=== PATIENT | male | born 1965 | race Caucasian/White ===

== ENCOUNTER 2018-02-10 13:02 | Observation (INO) ==
--- NOTE | 2018-02-10 14:20 | XR ---
EXAM DATE: 02/10/2018 1:58 PM EDT AGE/SEX: 53 years / Male INDICATIONS: . Chest pain. CLINICAL DATA: This is the patient's initial encounter. Patient reports that signs and symptoms have been present for 1 day and indicates a pain score of 7/10. MEDICAL/SURGICAL HISTORY: Diverticulitis. Hypertension. Diabetes. None. COMPARISON: No prior exams available for comparison. FINDINGS: PA and lateral views of the chest demonstrate elevation right hemidiaphragm. Right basilar subsegment al atelectasis. Left lung clear. Heart normal in size The cardiomediastinal contours are unremarkable . Osseous structures are intact. CONCLUSION: Right basilar subsegmental atelectasis and elevation right hemidiaphragm. Electronically signed by: Aydin Damon MD 02/10/2018 2:19 PM EDT
[2018-02-10 14:27] LABS: Baso # (Auto) 0.1 th/mm3 (0.0-0.2); Baso % (Auto) 0.9 % (0.0-2.0); Eos # (Auto) 0.2 th/mm3 (0.0-0.4); Eos % (Auto) 2.7 % (0.0-4.0); Hematocrit 45.3 % (39.0-51.0); Hemoglobin 15.3 gm/dL (13.0-17.0); Lymph # (Auto) 1.7 th/mm3 (1.0-4.8); Lymph % (Auto) 23.9 % (9.0-44.0); Mean Corpuscular HGB Conc 33.7 % (32.0-36.0); Mean Corpuscular Hemoglobin 29.6 pg (27.0-34.0); Mean Corpuscular Volume 87.8 fL (80.0-100.0); Mean Platelet Volume 9.4 fL (7.0-11.0); Mono # (Auto) 0.6 th/mm3 (0.0-0.9); Mono % (Auto) 7.9 % (0.0-8.0); Neut # (Auto) 4.6 th/mm3 (1.8-7.7); Neut % (Auto) 64.6 % (16.0-70.0); Platelet Count 220 th/mm3 (150-450); Red Blood Count 5.16 mil/mm3 (4.50-5.90); Red Cell Distribution Width 14.9 % (11.6-17.2); White Blood Count 7.1 th/mm3 (4.0-11.0)
[2018-02-10 14:41] LABS: Anion Gap 11 meq/L (5-15); Blood Urea Nitrogen 21 mg/dL (7-18); Calcium 9.2 mg/dL (8.5-10.1); Carbon Dioxide 24.4 meq/L (21.0-32.0); Chloride 105 meq/L (98-107); Glomerular Filtration Rate 51 mL/min (>89); Glucose,Random 160 mg/dL (74-106); Potassium 4.2 meq/L (3.5-5.1); Sodium 140 meq/L (136-145)
[2018-02-10 14:46] LABS: Creatine Kinase 84 U/L (39-308)
[2018-02-10 15:23] VITALS: RESP 18
--- NOTE | 2018-02-10 16:15 | ED ---
HPI General Chief Complaint: Chest Pain Stated Complaint: Chest pain Time Seen by Provider: 02/10/18 14:50 Source: patient and family Mode of arrival: ambulatory Limitations: no limitations History of Present Illness HPI narrative: 53-year-old male the presents to the ED for evaluation of left- sided chest pain that woke him up from sleep. Per patient is happened today. Per patient last for about 5 minutes and it went away. Per patient still feels sore on his chest. Feels like a pressure. Denies any urinary or bowel movement issues. Abdominal pain and nausea since Wednesday. Per patient he believes is secondary to diverticulitis. He has had flares of this in the past and feels similar. Per patient he has not seen anybody for the abdominal pain and he thought it will go away. Per patient the pain now is improved. Per patient he does have a history of diabetes, high blood pressure high cholesterol and takes medications for all 3. He has had a stress test about 3 years ago. Denies any fevers chills or sweats. No cough or runny nose. No trauma. No recent travel. Takes no blood thinners. Has been taking some Aleve for the pain with minimal improvement. Per patient his pain currently in his chest is 3 out of 10. No counter weigher. No other medical issues. Complete Quality Measures for STEMI Alert Patients Related Data Home Medications Medication Instructions Recorded Confirmed empagliflozin [Jardiance] 25 mg PO DAILY 02/10/18 02/10/18 insulin degludec [Tresiba 20 unit SUB-Q DAILY 02/10/18 02/10/18 FlexTouch U-200] liraglutide [Victoza 3-Sarkis] 2.6 mg SUB-Q DAILY 02/10/18 02/10/18 lisinopril-hydrochlorothiazide 1 tab PO DAILY 02/10/18 02/10/18 metformin 1,000 mg PO BID 02/10/18 02/10/18 metoprolol succinate 25 mg PO DAILY 02/10/18 02/10/18 pravastatin 20 mg PO DAILY 02/10/18 02/10/18 Allergies Allergy/AdvReac Type Severity Reaction Status Date / Time No Known Allergies Allergy Unverified 02/10/18 13:14 Review of Systems ROS: all other systems reviewed are negative [facility] Medical History Medical History Arthritis (Acute) Diabetes (Acute) Hypercholesteremia (Acute) Hypertension (Acute) Social History Social History Substance History: No History of Abuse Second Hand Smoke Exposure: Yes Smoking Status: Never smoker How Often Do You Have a Drink Containing Alcohol: Never Recent Travel in [facility] within the Last 8 Weeks: No Recent Out of Country Travel within the Last 8 Weeks: No Immunization History Tetanus Immunization: Unsure Hx Influenza Vaccine This Season: No Exam Narrative Exam Narrative: GENERAL: Well appearing SKIN: Focused skin assessment warm/dry. HEAD: Atraumatic. Normocephalic. EYES: Pupils equal and round. No scleral icterus. No injection or drainage. ENT: No nasal bleeding or discharge. Mucous membranes pink and moist. tongue is midline. No uvula deviation. NECK: Trachea midline. No JVD. CARDIOVASCULAR: Regular rate and rhythm. No murmur appreciated. RESPIRATORY: No accessory muscle use. Clear to auscultation. Breath sounds equal bilaterally. GASTROINTESTINAL: Abdomen soft, non-tender, nondistended. Hepatic and splenic margins not palpable. MUSCULOSKELETAL: No obvious deformities. No clubbing. No cyanosis. No edema. Full range of motion of the upper and lower extremities bilaterally. 2+ pulses bilaterally. NEUROLOGICAL: Awake and alert. No obvious cranial nerve deficits. Motor grossly within normal limits. Normal speech. PSYCHIATRIC: Appropriate mood and affect; insight and judgment normal. Course Initial Documented Vital Signs Temperature 98.0 F 02/10/18 13:10 Pulse Rate 86 02/10/18 13:10 Respiratory Rate 15 02/10/18 13:10 Blood Pressure 129/74 02/10/18 13:10 Pulse Oximetry 98 02/10/18 13:10 Last Documented Vital Signs Temperature 98.0 F 02/10/18 13:10 Pulse Rate 96 H 02/10/18 18:00 Respiratory Rate 18 02/10/18 18:00 Blood Pressure 130/74 02/10/18 18:00 Pulse Oximetry 97 02/10/18 17:31 Medical Decision Making TIGRE Attestation TIGRE supervised visit: Yes Attestation: I, Dr. langley, have reviewed the advance practice practitioner's documentation and am in agreement, met with the patient face to face, made the diagnosis, and the medical decision making was done by me. *My assessment and Findings: 53 y/o male presents with chest pain, initial ER testing without emergent process. Agrees to chest pain center observation MDM Narrative Medical decision making narrative: 53-year-old male the presents to the ED for evaluation of chest pain. Patient was properly examined and was found to have signs and symptoms concerning for ACS. EKG and troponin had been done in triage and were essentially negative. Patient does complain some abdominal pain. There is concern for ACS with this could also be abdominal in nature. We will do CT and blood work for belly. Patient agrees to proceed. Patient was given aspirin. Labs and imaging showed no sign of acute disease. At this time accommodations for admission for further evaluation. Patient agrees. Case discussed with my attending Dr. Langley who evaluated the patient and agrees with admission. Patient was admitted to the chest pain center by me. Differential Diagnosis Differential Diagnosis: ACS versus chest pain versus a typical chest pain versus diverticulitis versus acute abdomen Medical Records Medical records reviewed: Yes I reviewed the patient's medical records. Lab Data Lab results reviewed: Yes I reviewed the patient's lab results. Lab results narrative: lipase and hepatic panel WNL Result diagrams: 02/10/18 14:00 02/10/18 14:00 Lab Results 02/10/18 02/10/18 02/10/18 Range/Units 14:00 14:00 14:00 WBC 7.1 (4.0-11.0) th/mm3 RBC 5.16 (4.50-5.90) mil/mm3 Hgb 15.3 (13.0-17.0) gm/dL Hct 45.3 (39.0-51.0) % MCV 87.8 (80.0-100.0) fL MCH 29.6 (27.0-34.0) pg MCHC 33.7 (32.0-36.0) % RDW 14.9 (11.6-17.2) % Plt Count 220 (150-450) th/mm3 MPV 9.4 (7.0-11.0) fL Neut % (Auto) 64.6 (16.0-70.0) % Lymph % (Auto) 23.9 (9.0-44.0) % [place] % (Auto) 7.9 (0.0-8.0) % Eos % (Auto) 2.7 (0.0-4.0) % Baso % (Auto) 0.9 (0.0-2.0) % Neut # (Auto) 4.6 (1.8-7.7) th/mm3 Lymph # (Auto) 1.7 (1.0-4.8) th/mm3 [place] # (Auto) 0.6 (0.0-0.9) th/mm3 Eos # (Auto) 0.2 (0.0-0.4) th/mm3 Baso # (Auto) 0.1 (0.0-0.2) th/mm3 WBC Differential . Differential Comment Auto diff final Sodium 140 (136-145) meq/L Potassium 4.2 (3.5-5.1) meq/L Chloride 105 (98-107) meq/L Carbon Dioxide 24.4 (21.0-32.0) meq/L Anion Gap 11 (5-15) meq/L BUN 21 H (7-18) mg/dL Creatinine 1.45 H (0.60-1.30) mg/dL Estimated GFR 51 L (>89) mL/min Random Glucose 160 H (74-106) mg/dL Calcium 9.2 (8.5-10.1) mg/dL Total Bilirubin (0.2-1.0) mg/dL Direct Bilirubin (0.0-0.2) mg/dL Indirect Bilirubin (0.0-0.8) mg/dL AST (15-37) U/L ALT (12-78) U/L Alkaline Phosphatase (45-117) U/L Total Creatine Kinase 84 (39-308) U/L Troponin I Less than 0.02 L (0.02-0.05) ng/mL Total Protein (6.4-8.2) g/dL Albumin (3.4-5.0) g/dL Lipase 305 (73-393) U/L 02/10/18 Range/Units 14:00 WBC (4.0-11.0) th/mm3 RBC (4.50-5.90) mil/mm3 Hgb (13.0-17.0) gm/dL Hct (39.0-51.0) % MCV (80.0-100.0) fL MCH (27.0-34.0) pg MCHC (32.0-36.0) % RDW (11.6-17.2) % Plt Count (150-450) th/mm3 MPV (7.0-11.0) fL Neut % (Auto) (16.0-70.0) % Lymph % (Auto) (9.0-44.0) % [place] % (Auto) (0.0-8.0) % Eos % (Auto) (0.0-4.0) % Baso % (Auto) (0.0-2.0) % Neut # (Auto) (1.8-7.7) th/mm3 Lymph # (Auto) (1.0-4.8) th/mm3 [place] # (Auto) (0.0-0.9) th/mm3 Eos # (Auto) (0.0-0.4) th/mm3 Baso # (Auto) (0.0-0.2) th/mm3 WBC Differential Differential Comment Sodium (136-145) meq/L Potassium (3.5-5.1) meq/L Chloride (98-107) meq/L Carbon Dioxide (21.0-32.0) meq/L Anion Gap (5-15) meq/L BUN (7-18) mg/dL Creatinine (0.60-1.30) mg/dL Estimated GFR (>89) mL/min Random Glucose (74-106) mg/dL Calcium (8.5-10.1) mg/dL Total Bilirubin 0.7 (0.2-1.0) mg/dL Direct Bilirubin 0.2 (0.0-0.2) mg/dL Indirect Bilirubin 0.5 (0.0-0.8) mg/dL AST 29 (15-37) U/L ALT 56 (12-78) U/L Alkaline Phosphatase 69 (45-117) U/L Total Creatine Kinase (39-308) U/L Troponin I (0.02-0.05) ng/mL Total Protein 8.1 (6.4-8.2) g/dL Albumin 4.1 (3.4-5.0) g/dL Lipase (73-393) U/L Imaging Data Attestation: I personally reviewed and interpreted this imaging study as follows : Radiologist's impression: Chest X-Ray 02/10/18 13:16 CONCLUSION: Right basilar subsegmental atelectasis and elevation right hemidiaphragm. Abdomen/Pelvis CT 02/10/18 15:04 CONCLUSION: 1. Hypodense liver characteristic of steatosis. 2. No evidence of acute process. 3. Otherwise unremarkable exam. ECG Data EKG Prior to Arrival: No Prior ECG tracings: not available for review Interpretation: EKG shows sinus rhythm with no sign of acute ischemia or arrhythmia read by me and attending. Discharge Plan Discharge Disposition Patient Disposition: 30 Still Patient Discharge Details Diagnosis: Chest pain Physicians Team ED Provider: Alexandria Langley ED Midlevel Provider: Yeison Wong Primary Care Provider: Primary Care Yesi,Vidya Attending Provider: Palmer Frias Status ED Status: Admitted Observation Patient
[2018-02-10 16:47] LABS: Albumin 4.1 g/dL (3.4-5.0)
[2018-02-10 16:48] LABS: Total Protein 8.1 g/dL (6.4-8.2)
--- NOTE | 2018-02-10 17:59 | CT ---
EXAM DATE: 02/10/2018 5:52 PM EDT AGE/SEX: 53 years / Male INDICATIONS: Left side abdomen pain with nausea. CLINICAL DATA: This is the patient's initial encounter. Patient reports that signs and symptoms have been present for 1 day and indicates a pain score of 5/10. MEDICAL/SURGICAL HISTORY: None. None. ORAL CONTRAST: No oral contrast ingested. RADIATION DOSE: 16.50 CTDI (mGy) COMPARISON: No prior exams available for comparison. TECHNIQUE: Multiple contiguous axial images were obtained through the abdomen and pelvis following b olus infusion of 90 ml Omnipaque 350 (iohexol) nonionic water-soluble contrast as a single exam dos e. No oral contrast ingested. Using automated exposure control and adjustment of the mA and/or kV ac cording to patient size, radiation dose was kept as low as reasonably achievable to obtain optimal di agnostic quality images. DICOM format image data is available electronically for review and comparis on. FINDINGS: Lower Lungs: The visualized lower lungs are clear. Liver: The liver is diffusely hypodense. There are no focal space-occupying lesions or evidence of bi liary duct dilatation. There are no calcified gallstones. Spleen: Homogeneous density without enlargement. Pancreas: Unremarkable without mass or calcification. Kidneys: Normal in size and shape. No evidence of mass or hydronephrosis. 2 mm calculus is identifie d in the midpole of the left kidney. Adrenal Glands: Unremarkable. Aorta: The aorta and proximal iliac vessels are grossly unremarkable without aneurysmal dilation. Bowel/Mesentery: The bowel loops are grossly unremarkable. The cecum and sigmoid colon have a normal configuration. Retained stool is present throughout the colon. Abdominal Wall: Intact. Retroperitoneum: No evidence of adenopathy in the retrocrural, para-aortic, or deep pelvic regions. Bladder: Contours are smooth. Reproductive Organs: No abnormal masses or calcifications seen. Inguinal: The inguinal region is unremarkable without evidence of adenopathy. Bony Structures: Unremarkable. CONCLUSION: 1. Hypodense liver characteristic of steatosis. 2. No evidence of acute process. 3. Otherwise unremarkable exam. Electronically signed by: Oliver Peoples MD 02/10/2018 5:58 PM EDT
[2018-02-10] MEDS ORDERED: Acetaminophen 500 MG Tablet PO PRN (18:16)
[2018-02-10 19:35] LABS: Creatine Kinase 83 U/L (39-308)
[2018-02-10 23:11] LABS: Creatine Kinase 68 U/L (39-308)
[2018-02-11] MEDS ORDERED: Dextrose 50% in Water 50 ML Vial IV.PUSH PRN (07:22)
--- NOTE | 2018-02-11 08:47 | ECG ---
Date Performed: 02/10/2018 Time Performed: 22:08:15 PTAGE: 53 years EKG: Sinus rhythm LOW QRS VOLTAGE IN PRECORDIAL LEADS POSSIBLE RIGHT VENTRICULAR CONDUCTION DELAY ANTERIOR MYOCARDIAL INFARCTION ABNORMAL ECG PREVIOUS TRACING : 02/10/2018 18.30 Since previous tracing, no significant change noted DOCTOR: Palmer Frias Interpretating Date/Time 02/11/2018 08:47:15
--- NOTE | 2018-02-11 08:48 | ECG ---
Date Performed: 02/10/2018 Time Performed: 18:30:01 PTAGE: 53 years EKG: Sinus rhythm LOW QRS VOLTAGE IN PRECORDIAL LEADS POSSIBLE RIGHT VENTRICULAR CONDUCTION DELAY POSSIBLE ANTERIOR MY OCARDIAL INFARCTION ABNORMAL ECG PREVIOUS TRACING : 02/10/2018 13.27 Since previous tracing, no significant change noted DOCTOR: Palmer Frias Interpretating Date/Time 02/11/2018 08:48:08
--- NOTE | 2018-02-11 08:49 | ECG ---
Date Performed: 02/10/2018 Time Performed: 13:27:59 PTAGE: 53 years EKG: Sinus rhythm LOW QRS VOLTAGE IN PRECORDIAL LEADS INCOMPLETE RIGHT BUNDLE BRANCH BLOCK POSSIBLE ANTERIOR MYOCARDIA L INFARCTION ABNORMAL ECG WARNING: DATA QUALITY MAY AFFECT INTERPRETATION NO PREVIOUS TRACING DOCTOR: Palmer Frias Interpretating Date/Time 02/11/2018 08:48:39
[2018-02-11] MEDS: Insulin NovoLIN Regular Correctional Sugar Inj SQ SCH ×2 (09:11→15:19)
--- NOTE | 2018-02-11 09:31 | P.HPCA ---
History of Present Illness Primary Care Physician: No Primary Care Physician Chief Complaint: Chest pain History of Present Illness: This is a 53-year-old male with history of hypertension, hyperlipidemia, diabetes, and generalized arthritic pains that presents to ED with complaint of waking up 6:00 yesterday morning with a left-sided chest discomfort that he describes as a sharp pain. Last about 5 minutes and then went back to sleep. He woke up couple hours later within a soreness in his left chest lasted for greater than 12 hours. It resolved somewhere in the evening last night. Found nothing to worsen or improve it. Really cannot recall being short of breath, nauseous, diaphoretic. Plan of abdominal pain in the ED but is not complaining of abdominal pain to me. Denies recent illness. Denies fevers or chills. Denies history of CAD and cannot recall any recent stress testing. States his family history of CAD. Lifetime non-smoker. - Diagnosis (1) Chest pain (2) Hypertension (3) Diabetes (4) Hyperlipidemia Review of Systems General: Patient denies fevers, chills, and recent travel. HEENT: Patient denies headache, sore throat, difficulty swallowing. Cardiovascular: Has the chest discomfort as mentioned above. Denies sensation of heart beating rapidly or irregularly. No syncope. Denies diaphoresis Respiratory: Denies shortness of breath or inspirational chest discomfort. Denies coughing wheezing or hemoptysis. GI: Patient denies nausea, vomiting, diarrhea, abdominal pain, bloody stools. Musculoskeletal: Complains of generalized arthritic pains. Patient denies joint edema. Denies calf pain or edema. Neurovascular: Patient denies numbness, tingling, weakness in extremities. Denies headache. Endocrine: Denies polyuria and polydipsia. Hematologic: Denies easy bruising. Skin: Denies rash or itching. PMFSH - History History Provided By: Patient - Medical History Medical History: Medical History (Last Reviewed 02/10/18 @ 16:13 by DEUCE Powers) Arthritis Diabetes Hypercholesteremia Hypertension - Tobacco History Second Hand Smoke Exposure: Yes Tobacco Use In Past 30 Days: No Smoking Status: Never smoker - Alcohol History How Often Do You Have a Drink Containing Alcohol: Never - Substance Use History Substance History: No History of Abuse - Travel History Recent Travel in the [facility] Within the Last 8 Weeks: No Recent Travel Out of the Country Within the Last 8 Weeks: No - Immunization History Tetanus Immunization: Unsure Hx Influenza Vaccine This Season: No Medications and Allergies Active Medications: Active Medications Acetaminophen (Tylenol) 500 mg PO Q4H PRN PRN Reason: HEADACHE Hydrocodone Bitart/Acetaminophen ([place] 7.5/325) 1 tab PO Q4H PRN PRN Reason: PAIN SCALE 1 TO 7 Dextrose (D50w Vial) 50 ml IV.PUSH UNSCH PRN PRN Reason: PER HYPOGLYCEMIA PROTOCOL Glucagon (Glucagon Inj) 1 mg OTHER UNSCH PRN PRN Reason: for Hypoglycemia Protocol Insulin Human Regular (Novolin R Correctional Sugar Inj) 0 units SQ ACHS [facility]; Protocol Last Admin: 02/11/18 09:11 Dose: Not Given Metoprolol Succinate (Toprol Xl) 25 mg PO DAILY [facility] Non-Formulary Medication (Lisinopril-Hydrochlorothiazide [Lisinopril- Hydrochlorothiazide]) 1 tab PO DAILY [facility] Ondansetron HCl (Zofran Inj) 4 mg IV.PUSH Q6H PRN PRN Reason: NAUSEA Pravastatin Sodium (Pravachol) 20 mg PO DAILY [facility] Sodium Chloride (Ns Flush) 2 ml IV.FLUSH BID [facility] Last Admin: 02/11/18 09:10 Dose: 2 ml Sodium Chloride (Ns Flush) 2 ml IV.FLUSH PRN PRN PRN Reason: FLUSH AFTER USING IV ACCESS Allergies Allergy/AdvReac Type Severity Reaction Status Date / Time No Known Allergies Allergy Unverified 02/10/18 13:14 Home Medications Medication Instructions Recorded Confirmed Type empagliflozin [Jardiance] 25 mg PO DAILY 02/10/18 02/10/18 History insulin degludec [Tresiba 20 unit SUB-Q DAILY 02/10/18 02/10/18 History FlexTouch U-200] liraglutide [Victoza 3-Sarkis] 2.6 mg SUB-Q DAILY 02/10/18 02/10/18 History lisinopril-hydrochlorothiazide 1 tab PO DAILY 02/10/18 02/10/18 History metformin 1,000 mg PO BID 02/10/18 02/10/18 History metoprolol succinate 25 mg PO DAILY 02/10/18 02/10/18 History pravastatin 20 mg PO DAILY 02/10/18 02/10/18 History Exam Vital signs: Vital Signs 02/10/18 13:10 02/10/18 15:16 02/10/18 16:58 Temperature 98.0 F Pulse Rate 86 85 96 H Respiratory Rate 15 18 18 Blood Pressure 129/74 136/78 133/77 Pulse Oximetry 98 96 97 02/10/18 17:31 02/10/18 18:00 02/10/18 20:00 Temperature 98 F Pulse Rate 96 H 95 H Respiratory Rate 18 18 Blood Pressure 130/74 129/80 Pulse Oximetry 97 97 02/10/18 23:24 02/11/18 01:32 02/11/18 04:00 Temperature 97.8 F 98 F Pulse Rate 96 H 84 90 Respiratory Rate 18 18 Blood Pressure 118/72 108/61 Pulse Oximetry 94 L 96 02/11/18 07:49 Temperature 98.9 F Pulse Rate 84 Respiratory Rate 18 Blood Pressure 119/72 Pulse Oximetry 96 Intake & Output 02/10/18 02/11/18 02/11/18 18:59 06:59 18:59 Weight 113.398 kg Narrative: GENERAL: This is a well-nourished, well-developed patient, in no apparent distress. Patient speaks in clear complete sentences. Patient is pleasant. HEENT: Head is atraumatic and normocephalic. Neck is supple without lymphadenopathy and trachea is midline. No JVD or carotid bruits. CARDIOVASCULAR: Regular rate and rhythm without murmurs, gallops, or rubs. RESPIRATORY: Clear to auscultation. Breath sounds equal bilaterally. No wheezes , rales, or rhonchi. Chest wall is nontender. No use of accessory muscles. GASTROINTESTINAL: Abdomen is nontender, nondistended. Abdomen soft. No obvious pulsatile mass or bruit. No CVA tenderness. Strong femoral pulses bilaterally. Normal bowel sounds in all quadrants. MUSCULOSKELETAL: Patient is moving upper and lower extremities freely. No calf tenderness or edema, no Homans sign. Strong pulses in upper and lower extremities. NEUROLOGICAL: Patient is alert and oriented. Cranial nerves 2-12 are grossly intact. No focal deficits and speech is clear. SKIN: No rash and turgor is normal. Results 02/10/18 14:00 02/10/18 14:00 Cardiac Enzymes 02/10/18 02/10/18 02/10/18 Range/Units 14:00 14:00 18:20 AST 29 (15-37) U/L Troponin I Less than 0.02 L Less than 0.02 L (0.02-0.05) ng/mL 02/10/18 Range/Units 22:12 AST (15-37) U/L Troponin I Less than 0.02 L (0.02-0.05) ng/mL CBC 02/10/18 Range/Units 14:00 WBC 7.1 (4.0-11.0) th/mm3 RBC 5.16 (4.50-5.90) mil/mm3 Hgb 15.3 (13.0-17.0) gm/dL Hct 45.3 (39.0-51.0) % Plt Count 220 (150-450) th/mm3 Neut # (Auto) 4.6 (1.8-7.7) th/mm3 Lymph # (Auto) 1.7 (1.0-4.8) th/mm3 [place] # (Auto) 0.6 (0.0-0.9) th/mm3 Eos # (Auto) 0.2 (0.0-0.4) th/mm3 Baso # (Auto) 0.1 (0.0-0.2) th/mm3 Comprehensive Metabolic Panel 02/10/18 02/10/18 Range/Units 14:00 14:00 Sodium 140 (136-145) meq/L Potassium 4.2 (3.5-5.1) meq/L Chloride 105 (98-107) meq/L Carbon Dioxide 24.4 (21.0-32.0) meq/L BUN 21 H (7-18) mg/dL Creatinine 1.45 H (0.60-1.30) mg/dL Calcium 9.2 (8.5-10.1) mg/dL Direct Bilirubin 0.2 (0.0-0.2) mg/dL Indirect Bilirubin 0.5 (0.0-0.8) mg/dL AST 29 (15-37) U/L ALT 56 (12-78) U/L Alkaline Phosphatase 69 (45-117) U/L Total Protein 8.1 (6.4-8.2) g/dL Albumin 4.1 (3.4-5.0) g/dL EKG interpretations - EKG EKG shows: sinus rhythm (EKGs are sinus rhythm without significant ST segment depressions or elevations.) Caprini VTE Risk Assessment Caprini VTE Risk Assessment: No/Low Risk (score <= 1) Caprini Risk Assessment Model: Point Value = 1 Point Value = 2 Point Value = 3 Point Value = 5 Age 41-60 Minor surgery BMI > 25 kg/m2 Swollen legs Varicose veins or History of unexplained or recurrent spontaneous Oral contraceptives or hormone replacement Sepsis (< 1 month) Serious lung disease, including pneumonia (< 1 month) Abnormal pulmonary function Acute myocardial infarction Congestive heart failure (< 1 month) History of inflammatory bowel disease Medical patient at bed rest Age 61-74 Arthroscopic surgery Major open surgery (> 45 min) Laparoscopic surgery (> 45 min) Malignancy Confined to bed (> 72 hours) Immobilizing plaster cast Central venous access Age >= 75 History of VTE Family history of VTE Factor V Leiden Prothrombin [id number] Lupus anticoagulant Anticardiolipin antibodies Elevated serum homocysteine Heparin-induced thrombocytopenia Other congenital or acquired thrombophilia Stroke (< 1 month) Elective arthroplasty Hip, pelvis, or leg fracture Acute spinal cord injury (< 1 month) Prophylaxis Regimen: Total Risk Factor Score Risk Level Prophylaxis Regimen 0-1 Low Early ambulation 2 Moderate Order ONE of the following: *Sequential Compression Device (SCD) *Heparin 5000 units SQ BID 3-4 Higher Order ONE of the following medications: *Heparin 5000 units SQ TID *Enoxaparin/Lovenox 40 mg SQ daily (WT < 150 kg, CrCl > 30 mL/min) *Enoxaparin/Lovenox 30 mg SQ daily (WT < 150 kg, CrCl > 10-29 mL/min) *Enoxaparin/Lovenox 30 mg SQ BID (WT < 150 kg, CrCl > 30 mL/min) AND/OR *Sequential Compression Device (SCD) 5 or more Highest Order ONE of the following medications: *Heparin 5000 units SQ TID (Preferred with Epidurals) *Enoxaparin/Lovenox 40 mg SQ daily (WT < 150 kg, CrCl > 30 mL/min) *Enoxaparin/Lovenox 30 mg SQ daily (WT < 150 kg, CrCl > 10-29 mL/min) *Enoxaparin/Lovenox 30 mg SQ BID (WT < 150 kg, CrCl > 30 mL/min) AND *Sequential Compression Device (SCD) Assessment and Plan - Assessment (1) Chest pain Code(s): R07.9 - Chest pain, unspecified Status: Acute (2) Hypertension Code(s): I10 - Essential (primary) hypertension Status: Acute (3) Diabetes Code(s): E11.9 - Type 2 diabetes mellitus without complications Status: Acute (4) Hyperlipidemia Code(s): E78.5 - Hyperlipidemia, unspecified Status: Acute - Plan * Chest pain: Patient has had serial cardiac enzymes and EKGs for ruling out purposes. He has been seen by Dr. Palmer Frias of cardiology in chest pain center. He will undergo a Lexiscan as he states he would not be able do the treadmill with history of his arthritic pains. Patient will be discharged home if the stress test is nonischemic with instructions to follow-up with PCP. Return to ED for interval issues. * Hypertension: Continue medication. * Hyperlipidemia: Continue medication. * Diabetes: Patient will be on sliding scale insulin coverage. He will need to hold his metformin for 48 hours as he had a CT with contrast while being evaluated in the ED. Patient is stable at this time. He is agreeable to this plan. H&P: Quality - VTE Deep Vein Thrombosis/Pulmonary Embolism Present on Admission: No
[2018-02-11] MEDS ORDERED: Lisinopril 20 MG Tablet PO SCH (10:00)
[2018-02-11 12:13] VITALS: TEMP 98.7
[2018-02-11] MEDS ORDERED: Regadenoson Inj 0.4 MG/5 ML Syringe IV.PUSH ONE (14:24)
--- NOTE | 2018-02-11 14:49 | TR ---
Date Performed: 02/11/2018 Time Performed: 14:09:16 DOCTOR: Palmer Frias DRUG LIST: CLINICAL HISTORY: REASON FOR TEST: REASON FOR ENDING: OBSERVATION: CONCLUSION: COMMENTS: Lexiscan stress test was performed under standard four minute protocol. Radionuclide was injected one minute prior to ending the test. No electrocardiographic abormalities were present t o suggest ischemia. Nuclear imaging and interpretation are pending.
--- NOTE | 2018-02-11 15:12 | NM ---
EXAM DATE: 02/11/2018 3:07 PM EDT AGE/SEX: 53 years / Male INDICATIONS:. . Angina. CLINICAL DATA: This is the patient's subsequent encounter. Patient reports that signs and symptoms h ave been present for 1 day and indicates a pain score of 3/10. MEDICAL/SURGICAL HISTORY: Hypertension. Diabetes. Hypercholesterolemia. Arthritis. None. COMPARISON: No prior exams available for comparison. DOSE: 11.0 mCi Tc 99m Myoview at rest 35.6 mCi [id number] at stress 0.4 mg Lexiscan STRESS SYMPTOMS: Headache, nausea, chest pressure. EJECTION FRACTION: >70 % TECHNIQUE: The patient underwent pharmacologic stress with infusion of prescribed dose. Continuous ECG tracing was monitored during stress. Gated SPECT imaging was performed after stress and conventi onal SPECT imaging was performed at rest. The examination was performed on a SPECT/CT scanner, both attenuation and non-corrected datasets were reviewed. FINDINGS: Distribution: The maximum perfused segment at stress is in the anterior wall. Perfusion Study: The pattern of perfusion at stress is within normal limits. Gated Study: There are intact wall motion and wall thickening without hypokinetic or dyskinetic segm ents. The ejection fraction is calculated at >70%. RISK CATEGORY: Low (<1% Annual Motality Rate) CONCLUSION: 1. Negative examination. 2. No evidence of fixed or reversible perfusion abnormalities. Electronically signed by: Oliver Peoples MD 02/11/2018 3:11 PM EDT
[2018-02-11 15:15] VITALS: BP 118/80; PULSE 92; O2SAT 99
== END 2018-02-11 17:06 | disposition home or self-care (01) ==
LOC: NEPFCDU 13:02 → NEPE 13:02 → NEDA 13:02 → NEPFCDU 20:09
PROVIDERS: ADMIT Internal Medicine Cardiovascular Disease; ATTEND Internal Medicine Cardiovascular Disease